=== PATIENT | male | born 1975 | race Caucasian/White ===

== ENCOUNTER 2019-05-24 22:07 | Emergency (ER) | payer SELFPAY ==
[~2019-05-24] VITALS: Ht 185.4 cm; Wt 143.3 kg
[~2019-05-24 22:07] MED LIST: ALBU2.5V8 IH; CYCL-331 PO; METH10TA2 PO; ONDA4TAB10 PO
--- NOTE | 2019-05-24 22:12 | PHYS DOC ---
Past History Past Medical History: Asthma, Pneumonia, Other Past Surgical History: Cholecystectomy, Other Alcohol Use: None Drug Use: Methadone Adult General Chief Complaint Chief Complaint: ".. I got this stabbing pain in my right flank... it is like when I had walking pneumonia... It been going on now .. about a week... " HPI HPI Patient is a 43 year old MALE who presents with above hx and complaints Rt. side pain x 1 week. Pt. is sharp and stabbing. Seems to be related to deep respiratory effort, cough, and movement. Patient states pain is similar to prior episode of walking pneumonia. Patient denies any history immunosuppression. No recent travel. No specific ill contacts. No history of trauma. Normally follows with [facility]. . Does occasionally smoke marijuana. Does not smoke tobacco. Review of Systems Review of Systems Constitutional: Denies fever or chills [] Eyes: Denies change in visual acuity, redness, or eye pain [] HENT: Denies nasal congestion or sore throat [] Respiratory: Denies cough or shortness of breath. Pt. does have some mild wheezing. The patient complains of right chest wall pain Cardiovascular: No additional information not addressed in HPI [] GI: Denies abdominal pain, nausea, vomiting, bloody stools or diarrhea [. The patient]complaints of right flank and lower chest pain : Denies dysuria or hematuria [] Musculoskeletal: Denies back pain or joint pain [] Integument: Denies rash or skin lesions [] Neurologic: Denies headache, focal weakness or sensory changes [] Endocrine: Denies polyuria or polydipsia [] All other systems were reviewed and found to be within normal limits, except as documented in this note. Family History Family History Noncontributory Current Medications Current Medications See nursing for home medications Allergies Allergies Allergies Coded Allergies Type Severity Reaction Last Updated Verified No Known Drug Allergies 05/31/15 No Physical Exam Physical Exam Constitutional: Moderate acute distress, non-toxic appearance. [] HENT: Normocephalic, atraumatic, bilateral external ears normal, oropharynx moist, no oral exudates, nose normal. [] Eyes: PERRLA, EOMI, conjunctiva normal, no discharge. [] Neck: Normal range of motion, no tenderness, supple, no stridor. [] Cardiovascular: Tachycardia Heart rate regular rhythm, no murmur [] Lungs & Thorax: Bilateral breath sounds equal at apex on auscultation [Pt. has decreased breath sounds right flank. Pain on palpation of right flank and ribs. Abdomen: Bowel sounds normal, soft, no tenderness, no masses, no pulsatile masses. Obese Skin: Warm, dry, no erythema, no rash. [] Back: No tenderness, no CVA tenderness. [] Extremities: No tenderness, no cyanosis, no clubbing, ROM intact, slight bilateral ankle edema. [] No cording noted in legs. Neurologic: Alert and oriented X 3, normal motor function, normal sensory function, no focal deficits noted. [] Psychologic: Affect anxious, judgement normal, mood normal. [] EKG EKG My interpretation of EKG shows a sinus rhythm at 91 bpm. There is nonspecific contour changes. Anterior lateral. But no findings acute STEMI of contralateral changes.[] Radiology/Procedures Radiology/Procedures [][address] [address] IMAGING REPORT Signed PATIENT: ARIANNA GUERRERO EACCOUNT: [id number] : 1975 LOCATION: ER AGE: 43 SEX: M EXAM STATUS: REG ER ORD. PHYSICIAN: HUGO WERNER MD REASON: Chest wall pleuritic pain, PROCEDURE: CT ANGIOGRAPHY CHEST Study: CT CHEST WITH CONTRAST - PULMONARY ANGIOGRAM History: Pleuritic chest pain. Comparison: None. Technique: Helical CT of the chest performed after the administration of 99 cc intravenous contrast and timed for angiographic evaluation of the pulmonary arteries per PE protocol. Coronal and sagittal 3D MIP reformations were obtained. One or more of the following individualized dose reduction techniques were utilized for this examination: 1. Automated exposure control 2. Adjustment of the mA and/or kV according to patient size 3. Use of iterative reconstruction technique. Findings: The study is degraded by bolus timing which limits evaluation of the smaller pulmonary arteries. No main or lobar pulmonary embolism is identified. Normal main pulmonary artery caliber. Unremarkable aorta. The left vertebral artery originates from the vertebral arch. Patent great vessel origins. No pathologically enlarged mediastinal or hilar lymph nodes. Small perifissural nodule on the right, image 54 series 5, measuring 3 mm. This is most likely represents a lymph node and does not meet pathologic criteria based on size. Very mild right lower lung volume loss. This is seen in the setting of mild asymmetric elevation of the right hemidiaphragm. Bilateral gynecomastia. The partially visualized spleen measures prominent in size at 15 cm. Partially visualized degenerative changes at the right shoulder. IMPRESSION: 1. The study is degraded for pulmonary emboli detection within the smaller pulmonary arteries due to bolus timing. Taking this into consideration, no main or lobar pulmonary embolism is seen or findings of right heart strain. 2. No abnormality of the lungs or chest wall to account for the patient's symptoms. 3. Minimal right basilar atelectasis in the setting of mild asymmetric elevation of the right hemidiaphragm. 4. Nonspecific enlargement of the partially visualized spleen. No lymphadenopathy throughout the imaged body. Electronically signed by: JS GREEN MD (05/25/2019 1:07 AM) [facility] DICTATED AND SIGNED BY: JS GREEN MD DATE: 05/25/197 CC: HUGO WERNER MD; PCP,NO ~ Course & Med Decision Making Course & Med Decision Making Pertinent Labs and Imaging studies reviewed. (See chart for details) Patient follow-up all labs and x-rays with primary care. Continue his asthma breathing treatments. Practice deep breaths exercises. Recommended weight loss. Patient encouraged not to smoke anything. Patient to follow-up his splenomegaly. Will cover for bronchitis and possible small atypical right lower lobe pneumonia versus atelectasis with Zithromax 5 days. Must follow-up. Impression: 1. Rt. Flank Pain 2. Rt. Atelectasis 3. Mild enlargement of Spleen 4. Morbid Obesity 5. Mild Leukocytosis 11.5 6. Pleurisy 7. Marijuana use 8. Positive drug screen for methamphetamine [] Dragon Disclaimer Dragon Disclaimer This electronic medical record was generated, in whole or in part, using a voice recognition dictation system. Departure Departure: Disposition: 01 HOME/RESIDENCE PRIOR TO ADM Condition: STABLE Referrals: PCPMEHRAN (PCP) Scripts Azithromycin (ZITHROMAX) 250 Mg Tablet 250 MG PO DAILY for ANTI-BIOTIC for 5 Days, #5 TAB 0 Refills Prov: HUGO EWRNER MD 05/25/19 Dragon Disclaimer This chart was dictated in whole or in part using Voice Recognition software in a busy, high-work load, and often noisy Emergency Department environment. It may contain unintended and wholly unrecognized errors or omissions. HUGO WERNER MD May 24, 2019 22:11
[2019-05-24 22:20] VITALS: BP 148/87
[2019-05-24] MEDS ORDERED: KETOROLAC 30 MG/ML VIAL. IVP ONE (23:00)
[2019-05-24] MEDS ORDERED: IV RINGERS SOLUTION,LACTATED 1,000 ML IV SCH (23:00)
[2019-05-24 23:30] LABS: BARBITURATES NEG (NEG); BENZODIAZEPINES NEG (NEG); CANNABINOIDS POS (NEG); COCAINE NEG (NEG); METHADONE POS (NEG); OPIATES NEG (NEG); PHENCYCLIDINE NEG (NEG)
[2019-05-24] MEDS ORDERED: IOHEXOL 350 MG/ML 100 ML VIAL. IV ONE (23:30)
[2019-05-24] MEDS ORDERED: CONTRAST GIVEN MC PRN (23:30)
[2019-05-24 23:37] LABS: AMPHETAMINE/METHAMPHETAMINE NEG (NEG)
[2019-05-24 23:40] LABS: BASO # 0.1 x10^3/uL (0.0-0.2); BASO % 1 % (0-3); EOS # 0.1 x10^3/uL (0.0-0.7); EOS % 1 % (0-3); HEMATOCRIT 39.4 % (39.0-53.0); HEMOGLOBIN 13.3 g/dL (13.0-17.5); LYMPH # 2.7 x10^3/uL (1.0-4.8); LYMPH % 24 % (24-48); MEAN CORPUSCULAR HEMOGLOBIN 28 pg (25-35); MEAN CORPUSCULAR HGB CONC 34 g/dL (31-37); MEAN CORPUSCULAR VOLUME 81 fL (79-100); MONO # 0.6 x10^3/uL (0.0-1.1); MONO % 5 % (0-9); NEUT % 70 % (31-73); PLATELET COUNT 250 x10^3/uL (140-400); RED BLOOD COUNT 4.84 x10^6/uL (4.30-5.70); RED CELL DISTRIBUTION WIDTH 13.9 % (11.5-14.5); WHITE BLOOD COUNT 11.5 x10^3/uL (4.0-11.0)
[2019-05-24 23:51] LABS: CALCIUM 8.4 mg/dL (8.5-10.1); GFR 81.9; POTASSIUM 3.9 mmol/L (3.5-5.1)
[2019-05-24 23:54] LABS: BACTERIA,URINE 0 /HPF (0-FEW); BILIRUBIN,URINE NEG (NEG); CLARITY,URINE CLEAR; COLOR,URINE YELLOW; GLUCOSE,URINE NEG (NEG); NITRITE,URINE NEG (NEG); RBC,URINE 0 /HPF (0-2); UROBILINOGEN,URINE 0.2 mg/dL (0.2 mg/dL); WBC,URINE OCC /HPF (0-4)
[2019-05-24 23:58] LABS: ALBUMIN 3.6 g/dL (3.4-5.0); DIRECT BILIRUBIN 0.1 mg/dL (0.0-0.2); MAGNESIUM 1.9 mg/dL (1.8-2.4); TOTAL BILIRUBIN 0.2 mg/dL (0.2-1.0); TOTAL PROTEIN 7.4 g/dL (6.4-8.2)
--- NOTE | 2019-05-25 01:10 | RAD ---
Study: CT CHEST WITH CONTRAST - PULMONARY ANGIOGRAM History: Pleuritic chest pain. Comparison: None. Technique: Helical CT of the chest performed after the administration of 99 cc intravenous contrast and timed for angiographic evaluation of the pulmonary arteries per PE protocol. Coronal and sagittal 3D MIP reformations were obtained. One or more of the following individualized dose reduction techniques were utilized for this examination: 1. Automated exposure control 2. Adjustment of the mA and/or kV according to patient size 3. Use of iterative reconstruction technique. Findings: The study is degraded by bolus timing which limits evaluation of the smaller pulmonary arteries. No main or lobar pulmonary embolism is identified. Normal main pulmonary artery caliber. Unremarkable aorta. The left vertebral artery originates from the vertebral arch. Patent great vessel origins. No pathologically enlarged mediastinal or hilar lymph nodes. Small perifissural nodule on the right, image 54 series 5, measuring 3 mm. This is most likely represents a lymph node and does not meet pathologic criteria based on size. Very mild right lower lung volume loss. This is seen in the setting of mild asymmetric elevation of the right hemidiaphragm. Bilateral gynecomastia. The partially visualized spleen measures prominent in size at 15 cm. Partially visualized degenerative changes at the right shoulder. IMPRESSION: 1. The study is degraded for pulmonary emboli detection within the smaller pulmonary arteries due to bolus timing. Taking this into consideration, no main or lobar pulmonary embolism is seen or findings of right heart strain. 2. No abnormality of the lungs or chest wall to account for the patient's symptoms. 3. Minimal right basilar atelectasis in the setting of mild asymmetric elevation of the right hemidiaphragm. 4. Nonspecific enlargement of the partially visualized spleen. No lymphadenopathy throughout the imaged body. Electronically signed by: JS GREEN MD (05/25/2019 1:07 AM) [facility]
[2019-05-25] MEDS ORDERED: AZIT250T PO (02:00)
[2019-05-25] MEDS ORDERED: AZITHROMYCIN 250 MG TABLET. PO ONE (02:15)
[2019-05-25] MEDS ORDERED: cefTRIAXone IM 1 GM VIAL IM ONE (02:15)
[2019-05-25] MEDS ORDERED: LIDOCAINE 1% Multi-Dose 20 ML VIAL. ONE (02:18)
--- NOTE | 2019-05-25 05:48 | EKG ---
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
--- NOTE | 2019-05-25 08:00 | RAD ---
PA and lateral chest radiographs 05/24/2019 CLINICAL HISTORY: Chest pain. Two PA and a lateral digital radiographs of the chest were obtained. Comparison study is dated 05/31/2015. The cardiac and mediastinal silhouettes are within normal limits in size and configuration. Elevation of the right hemidiaphragm and blunting of the right costophrenic angle is seen, unchanged. No acute pulmonary infiltrate is noted. No pneumothorax or pleural effusion is seen. Mild degenerative changes are seen involving the thoracic spine. IMPRESSION: No acute abnormality is seen. Electronically signed by: He Nguyen MD (05/25/2019 7:57 AM) [facility]
--- NOTE | 2019-05-25 08:05 | RAD ---
Two-view abdomen radiographs 05/24/2019 CLINICAL HISTORY: Right flank and chest pain. 2 AP supine and 2 AP erect digital radiographs abdomen/pelvis were obtained. The lung bases are clear. Surgical clips overlie the right upper quadrant abdomen consistent with a cholecystectomy. The abdominal bowel gas pattern is nonobstructive. There is no evidence of free air. A moderate amount stool is seen throughout the colon. No radiopaque calculus is seen. Calcifications are seen within the pelvis consistent with phleboliths. The osseous structures are grossly intact. IMPRESSION: Nonobstructive bowel gas pattern. Electronically signed by: He Nguyen MD (05/25/2019 8:02 AM) [facility]
== END 2019-05-25 02:38 | disposition home or self-care (01) ==
LOC: ER 22:07
DX: R09.1 Pleurisy (principal); D72.829 Elevated white blood cell count, unspecified; E66.01 Morbid (severe) obesity due to excess calories; R16.1 Splenomegaly, not elsewhere classified; J98.11 Atelectasis; F12.90 Cannabis use, unspecified, uncomplicated; F15.10 Other stimulant abuse, uncomplicated; F19.10 Other psychoactive substance abuse, uncomplicated; J45.909 Unspecified asthma, uncomplicated; Z68.41 Body mass index [BMI] 40.0-44.9, adult
CPT/HCPCS: 36415; 71046; 71275; 74019; 80048; 80076; 80307; 81001; 82550; 83690; 83735; 84443; 84484; 85025; 85379; 85610; 85730; 87040; 93005; 96372; 96374; 99285; J0456; J0696; J1885; J7120; Q9967